=== PATIENT | female | born 1990 | race Hispanic/Latino ===

== ENCOUNTER 2019-02-27 10:37 | Inpatient (IN) | payer OTHER ==
[2019-02-27] MEDS ORDERED: Penicillin G Potassium 5 MILL.UNITS VIAL ONE (11:30)
[2019-02-27 11:48] VITALS: BMI 30.7
[2019-02-27] MEDS ORDERED: Ibuprofen 800 MG TAB PO PRN (11:53)
[2019-02-27] MEDS ORDERED: Diphenoxylate HCl/Atropine Tablet PO PRN (11:53)
[2019-02-27] MEDS ORDERED: Methylergonovine 0.2 MG/ML VIAL IM PRN (11:53)
[2019-02-27] MEDS ORDERED: Carboprost 250 MCG/ML AMP IM PRN (11:53)
[2019-02-27] MEDS ORDERED: HYDROcodone/Acetaminophen 5/325 mg Tablet PO PRN ×3 (11:53→16:19)
[2019-02-27] MEDS ORDERED: Lidocaine 1% (PF) 30 ML VIAL SC PRN (11:53)
[2019-02-27] MEDS ORDERED: Ondansetron PF 4 MG/2 ML Vial IVP PRN ×2 (11:53→16:19)
[2019-02-27] MEDS ORDERED: Promethazine HCl 25 MG/ML VIAL IM PRN ×2 (11:53→16:19)
[2019-02-27] MEDS ORDERED: NS / Oxytocin 40 units/1000ml 1,000 ML IV PRN (11:53)
[2019-02-27] MEDS ORDERED: Misoprostol 200 MCG TAB PR PRN (11:53)
[2019-02-27] MEDS ORDERED: Butorphanol Tartrate 1 MG/ML VIAL SLOW IVP PRN (12:00)
[2019-02-27] MEDS ORDERED: Penicillin G Potassium 5 MILL.UNITS in Sodium Chloride 0.9% 100 ML IVPB SCH (12:00)
[2019-02-27] MEDS ORDERED: Lactated Ringer's 1,000 ML IV SCH (12:00)
[2019-02-27] MEDS ORDERED: NS w/ Oxytocin 10 units 500 ML IV SCH ×2 (12:00)
[2019-02-27 12:25] LABS: #Eosinphils 0.1 thou/uL (0.0-0.7); #Lymphocytes 2.8 thou/uL (1.20-3.40); #Monocytes 1.1 thou/uL (0.11-0.59); #Neutrophils 11.7 thou/uL (1.40-6.50); %Basophils 0.2 % (0.0-1.0); %Eosinophils 0.4 % (0.0-10.0); %Lymphocytes 17.7 % (21.0-51.0); %Monocytes 6.8 % (0.0-10.0); Hemoglobin 13.4 g/dL (12.0-16.0); Mean Corpuscular HGB CONC 34.3 g/dL (32.0-36.0); Mean Corpuscular Hemoglobin 30.3 pg (27.0-31.0); Mean Corpuscular Volume 88.5 fL (78.0-98.0); Mean Platelet Volume 8.3 fL (7.4-10.4); Platelet Count 259 thou/uL (130-400); RBC Distribution Width 13.9 % (11.5-14.5); Red Blood Cell (RBC) Count 4.41 mill/uL (4.20-5.40); White Blood Cell (WBC) Count 15.6 thou/uL (4.8-10.8)
[2019-02-27 13:02] LABS: Syphilis Antibody Nonreactive (Nonreactive); Syphilis Antibody Index 0.04 S/CO (<1.00 Non-Reactive)
[2019-02-27] MEDS ORDERED: NS / Oxytocin 40 units/1000ml 1,000 ML ONE (13:13)
[2019-02-27] MEDS ORDERED: Lidocaine 1% (PF) 30 ML VIAL ONE (13:13)
[2019-02-27] MEDS: Penicillin G 2.5 MILL.units 2.5 MILL.UNITS in Premix Bag 1 BAG IVPB SCH (15:24)
[2019-02-27] MEDS ORDERED: Fentanyl 4 mcg/Bup 0.1% Cadd 100 ML ONE (15:37)
[2019-02-27] MEDS ORDERED: Lanolin Ointment 7 GM TUBE TOP PRN (16:19)
[2019-02-27] MEDS ORDERED: NS / Oxytocin 40 units/1000ml 1,000 ML IV SCH (16:19)
[2019-02-27] MEDS ORDERED: Milk Of Magnesia 30 ML UDCUP PO PRN (16:19)
[2019-02-27] MEDS ORDERED: Benzocaine-Menthol 82.5 ML CAN TOP PRN (16:19)
[2019-02-27] MEDS ORDERED: Bisacodyl 10 MG SUPP PR PRN (16:19)
[2019-02-27] MEDS: Ibuprofen 800 MG TAB PO SCH (21:46)
[2019-02-27] MEDS: Docusate Calcium (SURFAK) 240 MG CAP PO SCH (21:46)
[2019-02-28] MEDS: Ibuprofen 800 MG TAB PO SCH ×2 (05:37→14:06)
[2019-02-28 06:37] LABS: Hemoglobin 12.3 g/dL (12.0-16.0); Mean Corpuscular HGB CONC 33.2 g/dL (32.0-36.0); Mean Corpuscular Hemoglobin 30.1 pg (27.0-31.0); Mean Corpuscular Volume 90.7 fL (78.0-98.0); Platelet Count 235 thou/uL (130-400); RBC Distribution Width 13.8 % (11.5-14.5); Red Blood Cell (RBC) Count 4.09 mill/uL (4.20-5.40); White Blood Cell (WBC) Count 13.9 thou/uL (4.8-10.8)
[2019-02-28] MEDS: Ferrous Sulfate 325 MG TAB PO SCH ×2 (07:22→15:19)
[2019-02-28] MEDS: Penicillin G 2.5 MILL.units 2.5 MILL.UNITS in Premix Bag 1 BAG IVPB SCH (07:26)
[2019-02-28] MEDS ORDERED: Prenatal Vitamin 1 TAB PO SCH (09:00)
[2019-02-28] MEDS: Docusate Calcium (SURFAK) 240 MG CAP PO SCH (09:38)
[2019-02-28 12:03] VITALS: BP 117/73; TEMP 98
== END 2019-02-28 18:30 | disposition home or self-care (01) | DRG 807 ==
LOC: L&D/OP 10:37 → L&D 10:40 → 3SW 18:50
PROVIDERS: ADMIT Family Medicine; ATTEND Family Medicine
PROC: 10E0XZZ Delivery of Products of Conception, External Approach (ICD-10-PCS; principal; 2019-02-27)
DX: O99.824 Streptococcus B carrier state complicating childbirth (principal); Z37.0 Single live birth; Z3A.37 37 weeks gestation of pregnancy
CPT/HCPCS: 36415; 85025; 85027; 86762; 86780; 86850; 86900; 86901; J2001; J2540; J2590

== ENCOUNTER 2019-05-12 06:33 | Outpatient (CLI) | payer OTHER ==
--- NOTE | 2019-05-12 07:49 | ULT ---
ULTRASOUND ABDOMEN: HISTORY: Abdominal pain FINDINGS: The liver, spleen, pancreas, kidneys and visualized portions of the aorta and IVC appear normal. The common duct measures 4mm in diameter. No free fluid is seen. No shadowing gallstones, gallbladder wall thickening or pericholecystic fluid are seen. There are non shadowing immobile echogenic foci arising from the gallbladder, the largest measuring 6.5 mm. These are consistent with gallbladder polyps. IMPRESSION: Gallbladder polyps measuring up to 6.5 mm. Surgical consultation is recommended..
== END 2019-05-12 06:34 | disposition home or self-care (01) ==
LOC: BICULT 06:33
DX: R10.9 Unspecified abdominal pain (principal); K82.4 Cholesterolosis of gallbladder
CPT/HCPCS: 76700